=== PATIENT | female | born 1995 | race Caucasian/White ===

== ENCOUNTER 2018-10-29 18:05 | Emergency (ER) | payer OTHER ==
[~2018-10-29] VITALS: Ht 165.1 cm; Wt 54.0 kg
[2018-10-30] MEDS ORDERED: KETOROLAC 60MG/2ML VIAL IM ONE (00:15)
[2018-10-30 00:58] LABS: HEMATOCRIT 35.6 % (36.0-48.0); MEAN CORPUSCULAR HEMOGLOBIN 28.6 pg (28.0-32.0); MEAN CORPUSCULAR VOLUME 84.6 fL (81.0-99.0); PLATELET 241 x1000/uL (130-400); RED BLOOD CELL COUNT 4.21 mill/uL (4.2-5.4); RED CELL DISTRIBUTION WIDTH 13.1 % (11.6-14.6)
[2018-10-30 00:59] LABS: CHLORIDE 101 mEq/L (98-107)
[2018-10-30 03:03] VITALS: BP 100/57
== END 2018-10-30 03:09 | disposition home or self-care (01) ==
LOC: ER 18:05
DX: O26.891 Other specified pregnancy related conditions, first trimester (principal); G44.009 Cluster headache syndrome, unspecified, not intractable; R03.0 Elevated blood-pressure reading, without diagnosis of hypertension; Z3A.00 Weeks of gestation of pregnancy not specified
CPT/HCPCS: 36415; 80053; 81025; 85027; 85651; 96372; 99283; J1885